=== PATIENT | female | born 1980 | race Caucasian/White ===

== ENCOUNTER 2022-06-06 11:22 | Emergency (ER) | payer OTHER ==
[~2022-06-06] VITALS: Ht 154.9 cm; Wt 84.8 kg
[2022-06-06 11:28] VITALS: BP 120/75
--- NOTE | 2022-06-06 11:32 | NUR ---
DR DE DIOS IN TRIAGE FOR EVAL
--- NOTE | 2022-06-06 11:41 | NUR ---
SWABS WALKED TO LAB HANDED TO DAHLIA
[2022-06-06] MEDS ORDERED: IBUP-1842 PO (12:03)
[2022-06-06] MEDS ORDERED: BENZ100C6 PO (12:03)
--- NOTE | 2022-06-06 12:12 | NUR ---
41YR OLD FEMALE BIB SELF C/O CONGESTION /SOB CP/UPPER BACK PAIN X5DAYS. DENIES FEVER. NO PHELGM WITH COUGH. 4/10 PAIN . UPPER BACK FEELS ACHY WITH COUGH. RESP EVEN AND UNLABORED. HOB ELEVATED AND PT SITTING UP RIGHT. BED AT LOWEST POSITION NKDA PRE DM HIGH CHOL
--- NOTE | 2022-06-06 12:17 | NUR ---
Patient discharged with v/s stable. Written and verbal after care instructions given and explained. Patient alert, oriented and verbalized understanding of instructions. Ambulatory with steady gait. All questions addressed prior to discharge. ID band removed. Patient advised to follow up with PMD. Rx of BENZONATATE IBUPROFEN given. Patient educated on indication of medication including possible reaction and side effects. Opportunity to ask questions provided and answered.
== END 2022-06-06 12:17 | disposition home or self-care (01) ==
LOC: MED 11:22
DX: J06.9 Acute upper respiratory infection, unspecified (principal); Z20.822 Contact with and (suspected) exposure to COVID-19
CPT/HCPCS: 36415; 71045; 87635; 87804; 93005; 99285; C9803